=== PATIENT | female | born 1985 | race American Indian/Alaskan Native ===

== ENCOUNTER 2019-05-17 06:47 | Inpatient (IN) | payer OTHER ==
[~2019-05-17 06:47] MED LIST: Citric Acid/Sodium Citrate Solution 30 ML Cup PO ONE; Metoclopramide 10 MG/2 ML SDV IVPUSH ONE; Oxytocin/Lactated Ringers 10 UNIT/1,000 ML BAG IV SCH; Sodium Chloride 0.9% 10 ML Syringe FLUSH PRN
[2019-05-17] MEDS ORDERED: ceFAZolin 2 GM in Premix Bag 1 BAG IV ONE (07:00)
[2019-05-17] MEDS ORDERED: Bupivacaine 0.5% 30 ML SDV ONE (07:51)
--- NOTE | 2019-05-17 08:12 | PCM.PREANE ---
Preanesthetic Assessment - Anesthesia/Transfusion/Family Hx Anesthesia History: Prior Anesthesia Without Reaction Transfusion History: No Prior Transfusion(s) Intubation History: Unknown - Physical Assessment NPO Status Date: 05/16/19 NPO Status Time: 21:00 Vital Signs: Last Vital Signs Temp 97.7 F 05/17/19 07:41 Pulse 89 05/17/19 07:41 Resp 18 05/17/19 07:41 BP 111/75 05/17/19 07:41 Pulse Ox ASA Class: 2 Mental Status: Alert & Oriented x3 Airway Class: Mallampati = 2 Dentition: Reports: Normal Dentition Thyro-Mental Finger Breadths: 3 Mouth Opening Finger Breadths: 3 ROM/Head Extension: Full Lungs: Clear to Auscultation, Normal Respiratory Effort Cardiovascular: Regular Rate, Regular Rhythm - Lab Values: Laboratory Last Values WBC 7.20 K/mm3 (3.98-10.04) 05/17/19 07:10 RBC 4.13 M/mm3 (3.98-5.22) 05/17/19 07:10 Hgb 12.2 gm/dl (11.2-15.7) 05/17/19 07:10 Hct 36.6 % (34.1-44.9) 05/17/19 07:10 MCV 88.6 fl (79.4-94.8) D 05/17/19 07:10 MCH 29.5 pg (25.6-32.2) 05/17/19 07:10 MCHC 33.3 g/dl (32.2-35.5) 05/17/19 07:10 RDW Std Deviation 39.3 fL (36.4-46.3) 05/17/19 07:10 Plt Count 231 K/mm3 (182-369) 05/17/19 07:10 MPV 10.2 fl (9.4-12.3) 05/17/19 07:10 Neut % (Auto) 68.7 % (34.0-71.1) 05/17/19 07:10 Lymph % (Auto) 21.4 % (19.3-51.7) 05/17/19 07:10 [place] % (Auto) 8.2 % (4.7-12.5) 05/17/19 07:10 Eos % (Auto) 1.0 (0.7-5.8) 05/17/19 07:10 Baso % (Auto) 0.1 % (0.1-1.2) 05/17/19 07:10 Neut # (Auto) 4.95 K/mm3 (1.56-6.13) 05/17/19 07:10 Lymph # (Auto) 1.54 K/mm3 (1.18-3.74) 05/17/19 07:10 [place] # (Auto) 0.59 K/mm3 (0.24-0.36) H 05/17/19 07:10 Eos # (Auto) 0.07 K/mm3 (0.04-0.36) 05/17/19 07:10 Baso # (Auto) 0.01 K/mm3 (0.01-0.08) 05/17/19 07:10 Urine Opiates Screen Negative (DGVOBN=764) 05/17/19 06:55 Ur Buprenorphine Scrn Negative (CUTOFF=10) 05/17/19 06:55 Ur Oxycodone Screen Negative (QTH0AU=716) 05/17/19 06:55 Urine Methadone Screen Negative (BLFNME=820) 05/17/19 06:55 Ur Propoxyphene Screen Negative (GIQNLE=518) 05/17/19 06:55 Ur Barbiturates Screen Negative (RNDCKM=493) 05/17/19 06:55 Ur Tricyclics Screen Negative (RPNNCL=599) 05/17/19 06:55 Ur Phencyclidine Scrn Negative (CUTOFF=25) 05/17/19 06:55 Ur Amphetamine Screen Negative (JTHYIW=773) 05/17/19 06:55 U Methamphetamines Scrn Negative (EOMYQT=833) 05/17/19 06:55 U Benzodiazepines Scrn Negative (ATRGBG=529) 05/17/19 06:55 U Cocaine Metab Screen Negative (CGJSYK=838) 05/17/19 06:55 U Marijuana (THC) Screen Negative (CUTOFF=50) 05/17/19 06:55 Blood Type O POSITIVE 05/17/19 07:10 Gel Antibody Screen Negative 05/17/19 07:10 - Allergies Allergies/Adverse Reactions: Allergies Allergy/AdvReac Type Severity Reaction Status Date / Time No Known Allergies Allergy Verified 12/23/18 08:54 - Blood Blood Available: Yes Product(s) Available: PRBC - Acknowledgements Anesthesia Type Planned: Spinal Pt an Appropriate Candidate for the Planned Anesthesia: Yes Alternatives and Risks of Anesthesia Discussed w Pt/Guardian: Yes Pt/Guardian Understands and Agrees with Anesthesia Plan: Yes PreAnesthesia Questionnaire - Past Health History Medical/Surgical History: Denies Medical/Surgical History [employer] VERTICAL History: Reports: : 6 Para: 5 - Infectious Disease History Infectious Disease History: Reports: Hepatitis C - Past Surgical History GI Surgical History: Reports: Cholecystectomy Female Surgical History: Reports: Section (x 2 in the past, 2012, 2015) - 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, Methamphetamine Recreational Drug Last Use: september 2018 - HOME MEDS Home Medications: Home Meds Cephalexin [Keflex] 500 mg PO BID #14 capsule 12/23/18 [Rx] Ondansetron [Zofran ODT] 4 mg PO Q6H PRN #20 tab.dis 12/23/18 [Rx] - CURRENT (IN HOUSE) MEDS Current Meds: Current Medications Lactated Ringer's (Ringers, Lactated) 1,000 mls @ 125 mls/hr IV ASDIRECTED [facility] Oxytocin/Lactated Ringer's (Pitocin In Lr 10 Units/1,000 Ml) 10 unit in 1,000 mls @ 100 mls/hr IV ASDIRECTED [facility]; Protocol Sodium Chloride (Saline Flush) 10 ml FLUSH ASDIRECTED PRN PRN Reason: Keep Vein Open Discontinued Medications Bupivacaine HCl (Marcaine 0.5%) Confirm Administered Dose 30 ml .ROUTE .STK-MED ONE Stop: 05/17/19 07:52 Citric Acid/Sodium Citrate (Bicitra Solution) 30 ml PO ONETIME ONE Stop: 05/17/19 06:31 Last Admin: 05/17/19 07:42 Dose: 30 ml Cefazolin Sodium/Dextrose 2 gm (/ Premix) 50 mls @ 100 mls/hr IV ONETIME ONE Stop: 05/17/19 07:29 Metoclopramide HCl (Reglan) 10 mg IVPUSH ONETIME ONE Stop: 05/17/19 06:31
[2019-05-17] MEDS: Lactated Ringers 1,000 ML IV SCH ×2 (08:17→09:34)
[2019-05-17] MEDS ORDERED: Morphine PF 10 MG/10 ML SDV ONE (08:18)
[2019-05-17] MEDS ORDERED: Oxytocin 10 Units/1 ML SDV ONE (08:19)
[2019-05-17] MEDS ORDERED: ceFAZolin 1 GM Vial ONE (08:26)
[2019-05-17] MEDS ORDERED: Lactated Ringers 1,000 ML ONE (08:41)
[2019-05-17] MEDS ORDERED: diphenhydrAMINE 50 MG/ML SDV IVPUSH PRN (09:02)
[2019-05-17] MEDS ORDERED: fentaNYL 100 MCG/2 ML SDV IVPUSH PRN (09:02)
[2019-05-17] MEDS ORDERED: Ondansetron 4 MG/2 ML SDV IVPUSH PRN (09:02)
[2019-05-17] MEDS ORDERED: Ketorolac 30 MG/ML SDV IVPUSH PRN (09:11)
--- NOTE | 2019-05-17 09:29 | PCM.POSTAN ---
POST ANESTHESIA ASSESSMENT - MENTAL STATUS Mental Status: Alert - VITAL SIGNS Vital Signs: Last Vital Signs Temp 97.3 F 05/17/19 09:19 Pulse 84 05/17/19 09:19 Resp 21 H 05/17/19 09:19 BP 99/56 L 05/17/19 09:19 Pulse Ox 95 05/17/19 09:19 - RESPIRATORY Respiratory Status: Respiratory Rate WNL, Airway Patent - CARDIOVASCULAR CV Status: Pulse Rate WNL, Blood Pressure Stable - GASTROINTESTINAL GI Status: No Symptoms - PAIN Pain Score: 0 (post SAB) - POST OP HYDRATION Hydration Status: Adequate & Stable
--- NOTE | 2019-05-17 09:42 | PCM.OPNOTE ---
- General Post-Op/Procedure Note Date of Surgery/Procedure: 05/17/19 Operative Procedure(s): Repeat section Findings: Viable girl, weight 6#15oz, 8/9 APGARS, normal uterus tubes and ovaries. Pre Op Diagnosis: prior desires repeat Post-Op Diagnosis: prior desires repeat Anesthesia Technique: Spinal Fluid Replacement, Intraop: 200 Output, Urine Amount: 200 EBL in mLs: 600 Complications: None Condition: Good Free Text/Narrative:: The patient was taken to the operating room where spinal anesthesia was dosed to surgical levels without difficulty. The patient was prepped and draped in the usual sterile fashion in the dorsal supine position with a leftward tilt. A Pfannenstiel skin incision was made with the scalpel and carried through to the underlying layer of fascia. The fascia was incised in the midline and extended laterally using Mcdonald scissors. Sachin clamps were used to elevate the superior aspect of the fascial incision, which was elevated, and the underlying rectus muscles were dissected off bluntly and using Mcdonald scissors. Attention was then turned to the inferior aspect of the fascial incision, which in similar fashion was grasped with Sachin clamps, elevated, and the underlying rectus muscles were dissected off bluntly and using the mcdonald. The rectus muscles were dissected in the midline. The peritoneum was entered bluntly; this incision was extended superiorly and inferiorly with good visualization of the bladder. The bladder blade was inserted. The vesicouterine peritoneum was identified and entered sharply using Metzenbaum scissors. This incision was extended laterally and the bladder flap was created digitally. The bladder blade was reinserted. The lower uterine segment was incised in a transverse fashion using the scalpel and with digital traction. Clear fluid was noted. The was subsequently delivered by flexing the head to the incision. Body and shoulders followed without difficulty. The cord was clamped and cut. The was subsequently handed to the awaiting e tailer whose presence had been requested.. The placenta was delivered spontaneously intact with a three-vessel cord noted. The uterus was exteriorized and cleared of all clots and debris. The uterine incision was repaired in 2 layers using 0 monocryl. Hemostasis was visualized. Hemostasis was visualized bilaterally. The uterus was returned to the abdomen. The uterine incision was reexamined and it was noted to be hemostatic. The pelvis was copiously irrigated. The fascia was closed with 1 PDS suture, and the skin was closed with 3-0 monocryl. Sponge, lap, and instrument counts were correct x2. The patient was stable at the completion of the procedure and was subsequently transferred to the recovery room in stable condition.
[2019-05-17] MEDS ORDERED: Naloxone 0.4 MG/ML SDV IVPUSH PRN (10:45)
[2019-05-17] MEDS ORDERED: Dextrose 5%-Lactated Ringers 1,000 ML IV SCH (10:45)
[2019-05-17] MEDS ORDERED: ePHEDrine 50 MG/ML SDV IVPUSH PRN (10:45)
[2019-05-17] MEDS: diphenhydrAMINE 50 MG/ML SDV IVPUSH PRN ×2 (11:31→18:16)
[2019-05-17] MEDS: Ibuprofen 600 MG Tab PO PRN (16:26)
[2019-05-18] MEDS: diphenhydrAMINE 50 MG/ML SDV IVPUSH PRN ×2 (00:19→09:30)
[2019-05-18] MEDS: Ibuprofen 600 MG Tab PO PRN ×3 (00:27→18:19)
--- NOTE | 2019-05-18 09:10 | PCM.PNPP ---
- General Info Date of Service: 05/18/19 Functional Status: Reports: Pain Controlled, Tolerating Diet, Ambulating, Urinating - Review of Systems General: Reports: No Symptoms Pulmonary: Reports: No Symptoms Cardiovascular: Reports: No Symptoms Gastrointestinal: Reports: Abdominal Pain (managed with medications ) Genitourinary: Reports: No Symptoms Musculoskeletal: Reports: No Symptoms - Patient Data Vital Signs - Most Recent: Last Vital Signs Temp 36.5 C 05/18/19 04:00 Pulse 60 05/18/19 04:00 Resp 15 05/18/19 06:57 BP 98/73 05/18/19 04:00 Pulse Ox 98 05/18/19 06:57 Weight - Most Recent: 87.997 kg I&O - Last 24 Hours: Intake & Output 05/17/19 05/18/19 05/18/19 22:59 06:59 14:59 Intake Total 2760 500 Output Total 3400 Balance -640 500 Lab Results - Last 24 Hours: Laboratory Results - last 24 hr 05/17/19 05/18/19 Range/Units 07:10 05:06 WBC 10.00 (3.98-10.04) K/mm3 RBC 3.86 L (3.98-5.22) M/mm3 Hgb 11.5 (11.2-15.7) gm/dl Hct 34.4 (34.1-44.9) % MCV 89.1 (79.4-94.8) fl MCH 29.8 (25.6-32.2) pg MCHC 33.4 (32.2-35.5) g/dl RDW Std Deviation 40.7 (36.4-46.3) fL Plt Count 202 (182-369) K/mm3 MPV 10.5 (9.4-12.3) fl Neut % (Auto) 75.2 H (34.0-71.1) % Lymph % (Auto) 14.0 L (19.3-51.7) % [place] % (Auto) 9.4 (4.7-12.5) % Eos % (Auto) 0.9 (0.7-5.8) Baso % (Auto) 0.1 (0.1-1.2) % Neut # (Auto) 7.52 H (1.56-6.13) K/mm3 Lymph # (Auto) 1.40 (1.18-3.74) K/mm3 [place] # (Auto) 0.94 H (0.24-0.36) K/mm3 Eos # (Auto) 0.09 (0.04-0.36) K/mm3 Baso # (Auto) 0.01 (0.01-0.08) K/mm3 RPR Non-reactive (NONREACTIVE) Med Orders - Current: Current Medications Diphenhydramine HCl (Benadryl) 25 mg IVPUSH Q6H PRN PRN Reason: Itching or Nausea Last Admin: 05/18/19 00:19 Dose: 25 mg Ephedrine Sulfate (Ephedrine Sulfate) 5 mg IVPUSH SEECOMMENT PRN PRN Reason: Other Ibuprofen (Motrin) 600 mg PO Q6H PRN PRN Reason: mild pain or fever Last Admin: 05/18/19 00:27 Dose: 600 mg Naloxone HCl (Narcan) 0.1 mg IVPUSH SEECOMMENT PRN PRN Reason: Respiratory Depression Oxycodone/Acetaminophen (Percocet 325-5 Mg) 2 tab PO Q6H PRN PRN Reason: Pain (moderate 4-6) Discontinued Medications Bupivacaine HCl (Marcaine 0.5%) Confirm Administered Dose 30 ml .ROUTE .STK-MED ONE Stop: 05/17/19 07:52 Last Admin: 05/17/19 08:49 Dose: 20 ml Cefazolin Sodium (Ancef) Confirm Administered Dose 2 gm .ROUTE .STK-MED ONE Stop: 05/17/19 08:27 Citric Acid/Sodium Citrate (Bicitra Solution) 30 ml PO ONETIME ONE Stop: 05/17/19 06:31 Last Admin: 05/17/19 07:42 Dose: 30 ml Diphenhydramine HCl (Benadryl) 25 mg IVPUSH Q6H PRN PRN Reason: Pruritis Fentanyl (Sublimaze) 50 mcg IVPUSH Q5M PRN PRN Reason: Pain Cefazolin Sodium/Dextrose 2 gm (/ Premix) 50 mls @ 100 mls/hr IV ONETIME ONE Stop: 05/17/19 07:29 Lactated Ringer's (Ringers, Lactated) 1,000 mls @ 125 mls/hr IV ASDIRECTED [facility] Last Admin: 05/17/19 09:34 Dose: 125 mls/hr Oxytocin/Lactated Ringer's (Pitocin In Lr 10 Units/1,000 Ml) 10 unit in 1,000 mls @ 100 mls/hr IV ASDIRECTED [facility]ANNA; Protocol Lactated Ringer's (Ringers, Lactated) Confirm Administered Dose 1,000 mls @ as directed .ROUTE .STK-MED ONE Stop: 05/17/19 08:42 Dextrose/Lactated Ringer's (Dextrose 5%-Lactated Ringers) 1,000 mls @ 125 mls/ hr IV ASDIRECTED [facility]AN[facility] Stop: 05/17/19 18:44 Last Admin: 05/17/19 14:42 Dose: 125 mls/hr Ketorolac Tromethamine (Toradol) 30 mg IVPUSH Q6H PRN PRN Reason: Pain Metoclopramide HCl (Reglan) 10 mg IVPUSH ONETIME ONE Stop: 05/17/19 06:31 Last Admin: 05/17/19 08:17 Dose: 10 mg Morphine Sulfate (Duramorph Pf) Confirm Administered Dose 10 mg .ROUTE .STK-MED ONE Stop: 05/17/19 08:19 Ondansetron HCl (Zofran) 4 mg IVPUSH ONETIME PRN PRN Reason: Nausea/Vomiting Oxytocin (Pitocin) Confirm Administered Dose 10 unit .ROUTE .STK-MED ONE Stop: 05/17/19 08:20 Sodium Chloride (Saline Flush) 10 ml FLUSH ASDIRECTED PRN PRN Reason: Keep Vein Open - Infant Interaction Disposition, : [place] to Nursery Interaction: Not Applicable Feeding: Bottle Fed - Recovery Exam Fundal Tone: Firm Fundal Level: 1 Fingerbreadths Below Umbilicus Fundal Placement: Midline Lochia Amount: Scant Lochia Color: Rubra/Red Perineum Description: Intact, Minimal Bruising/Swelling Episiotomy/Laceration: None Bladder Status: Nonpalpable, Voiding Urinary Elimination: Voided - Exam General: Alert, Oriented, Cooperative Lungs: Clear to Auscultation, Normal Respiratory Effort Cardiovascular: Regular Rate, Regular Rhythm GI/Abdominal Exam: Soft, Tender (appropriate post op) Extremities: Normal Inspection Skin: Warm, Dry, Intact - Problem List & Annotations (1) S/P SNOMED Code(s): 855313912, 103918278 Code(s): Z98.891 - HISTORY OF UTERINE SCAR FROM PREVIOUS SURGERY Status: Acute Current Visit: Yes - Problem List Review Problem List Initiated/Reviewed/Updated: Yes - Assessment Assessment:: POD#1 from RLTCS - Plan Plan:: * Routine cares * Bottle feeding * Discharge home in 2 days
[2019-05-18] MEDS ORDERED: diphenhydrAMINE 25 MG Cap PO PRN (09:43)
[2019-05-18] MEDS ORDERED: Magnesium Hydroxide 400 MG/5 ML Susp 30 ML Cup PO ONE (15:20)
[2019-05-18] MEDS: Acetaminophen/oxyCODONE 325-5 MG Tab PO PRN ×2 (21:01→22:04)
[2019-05-19] MEDS: Ibuprofen 600 MG Tab PO PRN (04:05)
--- NOTE | 2019-05-19 07:54 | PCM.DCSUM1 ---
Discharge Summary - Discharge Data Discharge Date: 05/19/19 Discharge Disposition: Home, Self-Care 01 Condition: Good - Referral to Home Health Primary Care Physician: Drea Adorno PA-C - Discharge Diagnosis/Problem(s) (1) S/P SNOMED Code(s): 241782109, 857575391 ICD Code: Z98.891 - HISTORY OF UTERINE SCAR FROM PREVIOUS SURGERY Status: Acute Current Visit: Yes - Patient Summary/Data Operative Procedure(s) Performed: Repeat section Complications: None Consults: None Recommended Follow-up Testing/Procedures: Follow up in 1-2 weeks for incision check Hospital Course: 33 y/o women presented for RLTCS at term. Surgery was uncomplicated. See operative note. patient did well. She was discharged back to her correctional facility on PPD#2 - Patient Instructions Diet: Regular Diet as Tolerated Activity: No Lifting Over 10 Pounds Activity, Other: Pelvic rest for 6 weeks Driving: Do Not Drive (while taking narcotics ) Showering/Bathing: May Shower, No Tub Bathing/Swimming Wound/Incision Care: Keep Operative Site/Wound Site Clean and Dry Notify Provider of: Fever, Increased Pain, Swelling and Redness, Drainage, Nausea and/or Vomiting - Discharge Plan *PRESCRIPTION DRUG MONITORING PROGRAM REVIEWED*: No *COPY OF PRESCRIPTION DRUG MONITORING REPORT IN PATIENT MERARY: No Home Medications: Home Meds Ibuprofen [Motrin] 600 mg PO Q6H PRN tablet 05/19/19 [Rx] Referrals: Cynthia Agee MD [Physician] - (1 week for incision check ) - Discharge Summary/Plan Comment DC Time >30 min.: No - Patient Data Vitals - Most Recent: Last Vital Signs Temp 36.6 C 05/19/19 04:04 Pulse 62 05/19/19 04:04 Resp 14 05/19/19 04:04 BP 104/64 05/19/19 04:04 Pulse Ox 94 L 05/19/19 04:04 Weight - Most Recent: 87.997 kg I&O - Last 24 hours: Intake & Output 05/18/19 05/19/19 05/19/19 22:59 06:59 14:59 Intake Total 840 Balance 840 Lab Results - Last 24 hrs: Laboratory Results - last 24 hr 05/18/19 Range/Units 09:20 MRSA (PCR) Negative Med Orders - Current: Current Medications Diphenhydramine HCl (Benadryl) 25 mg PO Q6H PRN PRN Reason: Itching Last Admin: 05/18/19 18:21 Dose: 25 mg Ephedrine Sulfate (Ephedrine Sulfate) 5 mg IVPUSH SEECOMMENT PRN PRN Reason: Other Ibuprofen (Motrin) 600 mg PO Q6H PRN PRN Reason: mild pain or fever Last Admin: 05/19/19 04:05 Dose: 600 mg Naloxone HCl (Narcan) 0.1 mg IVPUSH SEECOMMENT PRN PRN Reason: Respiratory Depression Oxycodone/Acetaminophen (Percocet 325-5 Mg) 2 tab PO Q6H PRN PRN Reason: Pain (moderate 4-6) Last Admin: 05/18/19 22:04 Dose: 1 tab Discontinued Medications Bupivacaine HCl (Marcaine 0.5%) Confirm Administered Dose 30 ml .ROUTE .STK-MED ONE Stop: 05/17/19 07:52 Last Admin: 05/17/19 08:49 Dose: 20 ml Cefazolin Sodium (Ancef) Confirm Administered Dose 2 gm .ROUTE .STK-MED ONE Stop: 05/17/19 08:27 Citric Acid/Sodium Citrate (Bicitra Solution) 30 ml PO ONETIME ONE Stop: 05/17/19 06:31 Last Admin: 05/17/19 07:42 Dose: 30 ml Diphenhydramine HCl (Benadryl) 25 mg IVPUSH Q6H PRN PRN Reason: Pruritis Diphenhydramine HCl (Benadryl) 25 mg IVPUSH Q6H PRN PRN Reason: Itching or Nausea Last Admin: 05/18/19 09:30 Dose: 25 mg Fentanyl (Sublimaze) 50 mcg IVPUSH Q5M PRN PRN Reason: Pain Cefazolin Sodium/Dextrose 2 gm (/ Premix) 50 mls @ 100 mls/hr IV ONETIME ONE Stop: 05/17/19 07:29 Lactated Ringer's (Ringers, Lactated) 1,000 mls @ 125 mls/hr IV ASDIRECTED [facility] Last Admin: 05/17/19 09:34 Dose: 125 mls/hr Oxytocin/Lactated Ringer's (Pitocin In Lr 10 Units/1,000 Ml) 10 unit in 1,000 mls @ 100 mls/hr IV ASDIRECTED [facility]AN[facility]; Protocol Lactated Ringer's (Ringers, Lactated) Confirm Administered Dose 1,000 mls @ as directed .ROUTE .STK-MED ONE Stop: 05/17/19 08:42 Dextrose/Lactated Ringer's (Dextrose 5%-Lactated Ringers) 1,000 mls @ 125 mls/ hr IV ASDIRECTED [facility] Stop: 05/17/19 18:44 Last Admin: 05/17/19 14:42 Dose: 125 mls/hr Ketorolac Tromethamine (Toradol) 30 mg IVPUSH Q6H PRN PRN Reason: Pain Magnesium Hydroxide (Milk Of Magnesia) 30 ml PO ONETIME ONE Stop: 05/18/19 15:21 Last Admin: 05/18/19 15:32 Dose: 30 ml Metoclopramide HCl (Reglan) 10 mg IVPUSH ONETIME ONE Stop: 05/17/19 06:31 Last Admin: 05/17/19 08:17 Dose: 10 mg Morphine Sulfate (Duramorph Pf) Confirm Administered Dose 10 mg .ROUTE .STK-MED ONE Stop: 05/17/19 08:19 Ondansetron HCl (Zofran) 4 mg IVPUSH ONETIME PRN PRN Reason: Nausea/Vomiting Oxytocin (Pitocin) Confirm Administered Dose 10 unit .ROUTE .STK-MED ONE Stop: 05/17/19 08:20 Sodium Chloride (Saline Flush) 10 ml FLUSH ASDIRECTED PRN PRN Reason: Keep Vein Open
--- NOTE | 2019-05-19 07:54 | PCM.PNPP ---
- General Info Date of Service: 05/19/19 Functional Status: Reports: Pain Controlled, Tolerating Diet, Ambulating, Urinating - Review of Systems General: Reports: No Symptoms Pulmonary: Reports: No Symptoms Cardiovascular: Reports: No Symptoms Gastrointestinal: Reports: No Symptoms Genitourinary: Reports: No Symptoms Musculoskeletal: Reports: No Symptoms Neurological: Reports: No Symptoms - Patient Data Vital Signs - Most Recent: Last Vital Signs Temp 36.6 C 05/19/19 04:04 Pulse 62 05/19/19 04:04 Resp 14 05/19/19 04:04 BP 104/64 05/19/19 04:04 Pulse Ox 94 L 05/19/19 04:04 Weight - Most Recent: 87.997 kg I&O - Last 24 Hours: Intake & Output 05/18/19 05/19/19 05/19/19 22:59 06:59 14:59 Intake Total 840 Balance 840 Lab Results - Last 24 Hours: Laboratory Results - last 24 hr 05/18/19 Range/Units 09:20 MRSA (PCR) Negative Med Orders - Current: Current Medications Diphenhydramine HCl (Benadryl) 25 mg PO Q6H PRN PRN Reason: Itching Last Admin: 05/18/19 18:21 Dose: 25 mg Ephedrine Sulfate (Ephedrine Sulfate) 5 mg IVPUSH SEECOMMENT PRN PRN Reason: Other Ibuprofen (Motrin) 600 mg PO Q6H PRN PRN Reason: mild pain or fever Last Admin: 05/19/19 04:05 Dose: 600 mg Naloxone HCl (Narcan) 0.1 mg IVPUSH SEECOMMENT PRN PRN Reason: Respiratory Depression Oxycodone/Acetaminophen (Percocet 325-5 Mg) 2 tab PO Q6H PRN PRN Reason: Pain (moderate 4-6) Last Admin: 05/18/19 22:04 Dose: 1 tab Discontinued Medications Bupivacaine HCl (Marcaine 0.5%) Confirm Administered Dose 30 ml .ROUTE .STK-MED ONE Stop: 05/17/19 07:52 Last Admin: 05/17/19 08:49 Dose: 20 ml Cefazolin Sodium (Ancef) Confirm Administered Dose 2 gm .ROUTE .STK-MED ONE Stop: 05/17/19 08:27 Citric Acid/Sodium Citrate (Bicitra Solution) 30 ml PO ONETIME ONE Stop: 05/17/19 06:31 Last Admin: 05/17/19 07:42 Dose: 30 ml Diphenhydramine HCl (Benadryl) 25 mg IVPUSH Q6H PRN PRN Reason: Pruritis Diphenhydramine HCl (Benadryl) 25 mg IVPUSH Q6H PRN PRN Reason: Itching or Nausea Last Admin: 05/18/19 09:30 Dose: 25 mg Fentanyl (Sublimaze) 50 mcg IVPUSH Q5M PRN PRN Reason: Pain Cefazolin Sodium/Dextrose 2 gm (/ Premix) 50 mls @ 100 mls/hr IV ONETIME ONE Stop: 05/17/19 07:29 Lactated Ringer's (Ringers, Lactated) 1,000 mls @ 125 mls/hr IV ASDIRECTED [facility] Last Admin: 05/17/19 09:34 Dose: 125 mls/hr Oxytocin/Lactated Ringer's (Pitocin In Lr 10 Units/1,000 Ml) 10 unit in 1,000 mls @ 100 mls/hr IV ASDIRECTED [facility]; Protocol Lactated Ringer's (Ringers, Lactated) Confirm Administered Dose 1,000 mls @ as directed .ROUTE .STK-MED ONE Stop: 05/17/19 08:42 Dextrose/Lactated Ringer's (Dextrose 5%-Lactated Ringers) 1,000 mls @ 125 mls/ hr IV ASDIRECTED [facility] Stop: 05/17/19 18:44 Last Admin: 05/17/19 14:42 Dose: 125 mls/hr Ketorolac Tromethamine (Toradol) 30 mg IVPUSH Q6H PRN PRN Reason: Pain Magnesium Hydroxide (Milk Of Magnesia) 30 ml PO ONETIME ONE Stop: 05/18/19 15:21 Last Admin: 05/18/19 15:32 Dose: 30 ml Metoclopramide HCl (Reglan) 10 mg IVPUSH ONETIME ONE Stop: 05/17/19 06:31 Last Admin: 05/17/19 08:17 Dose: 10 mg Morphine Sulfate (Duramorph Pf) Confirm Administered Dose 10 mg .ROUTE .STK-MED ONE Stop: 05/17/19 08:19 Ondansetron HCl (Zofran) 4 mg IVPUSH ONETIME PRN PRN Reason: Nausea/Vomiting Oxytocin (Pitocin) Confirm Administered Dose 10 unit .ROUTE .STK-MED ONE Stop: 05/17/19 08:20 Sodium Chloride (Saline Flush) 10 ml FLUSH ASDIRECTED PRN PRN Reason: Keep Vein Open - Interaction Infant Disposition, : [place] in Room with Family Infant Interaction: Holding Feeding: Bottle Fed Infant - Recovery Exam Fundal Tone: Firm Fundal Level: At Umbilicus Fundal Placement: Midline Lochia Amount: Scant Lochia Color: Rubra/Red Perineum Description: Intact, Minimal Bruising/Swelling Episiotomy/Laceration: None Bladder Status: Voiding Urinary Elimination: Voided - Exam General: Alert, Oriented, Cooperative Lungs: Clear to Auscultation, Normal Respiratory Effort Cardiovascular: Regular Rate, Regular Rhythm GI/Abdominal Exam: Soft, Non-Tender Extremities: Normal Inspection Skin: Warm, Dry, Intact Wound/Incisions: Healing Well, No Drainage - Problem List & Annotations (1) S/P SNOMED Code(s): 340099192, [id number] Code(s): Z98.891 - HISTORY OF UTERINE SCAR FROM PREVIOUS SURGERY Status: Acute Current Visit: Yes - Problem List Review Problem List Initiated/Reviewed/Updated: Yes - My Orders Last 24 Hours: My Active Orders 05/18/19 09:43 diphenhydrAMINE [Benadryl] 25 mg PO Q6H PRN 05/19/19 07:53 Ready for Discharge [RC] PER UNIT ROUTINE - Assessment Assessment:: POD#2 from RLTCS - Plan Plan:: * Routine cares * Bottle feeding * Discharge home today
--- NOTE | 2019-05-19 14:44 | PCM48HPAN ---
Post Anesthesia Note - EVALUATION WITHIN 48HRS OF ANESTHETIC Vital Signs in Normal Range: Yes Patient Participated in Evaluation: No Respiratory Function Stable: Yes Airway Patent: Yes Cardiovascular Function Stable: Yes Hydration Status Stable: Yes Pain Control Satisfactory: Yes Nausea and Vomiting Control Satisfactory: Yes Mental Status Recovered: Yes Vital Signs: Last Vital Signs Temp 37.0 C 05/19/19 09:03 Pulse 88 05/19/19 09:03 Resp 16 05/19/19 09:03 BP 107/73 05/19/19 09:03 Pulse Ox 98 05/19/19 09:03 - COMMENTS/OBSERVATIONS Free Text/Narrative:: Patient discharged from hospital. Nurses stated that she did well. No concerns. No complications.
== END 2019-05-19 12:15 | disposition home or self-care (01) | DRG 788 ==
LOC: JD.OB 06:47
PROVIDERS: ADMIT Obstetrics & Gynecology; ATTEND Obstetrics & Gynecology
PROC: 10D00Z1 Extraction of Products of Conception, Low, Open Approach (ICD-10-PCS; principal; 2019-05-17)
DX: O34.211 Maternal care for low transverse scar from previous cesarean delivery (principal); Z37.0 Single live birth; Z3A.38 38 weeks gestation of pregnancy; Z90.49 Acquired absence of other specified parts of digestive tract
CPT/HCPCS: 01961; 36415; 59025; 80306; 85025; 86592; 86850; 86900; 86901; 87641; 94762; A9270-GY; J0690; J1200; J2270; J2590; J2765; J3490; J7042; J7120